=== PATIENT | female | born 1995 | race Caucasian/White ===

== ENCOUNTER 2020-08-28 21:36 | Inpatient (IN) | payer SELFPAY ==
[~2020-08-28] VITALS: Ht 172.7 cm; Wt 101.8 kg
--- NOTE | 2020-08-28 21:45 | NUR ---
Ambulatory to unit for labor assessment, accompanied by spouse. Pt reports mild cramping sinse office exam, stronger contractions this evening. Oriented to room, monitor, plan of care. KHADAR hoffman no change from office exam. Pt reports fast labors and deliveries. Will continue to monitor and reasses. Covid screening negative,pt declines Covid Swab, no PUI.
[2020-08-28 21:55] VITALS: BP 119/71; PULSE 86; TEMP 99
[2020-08-28 22:35] VITALS: BP 124/90; PULSE 99
[2020-08-28 22:55] VITALS: PULSE 79
--- NOTE | 2020-08-28 22:55 | NUR ---
IV started @ bolus rate. Moises PLANT WIRE CHIEF notified of pt request for epidural.
--- NOTE | 2020-08-28 23:15 | NUR ---
Moises FIRMWARE ENGINEER into room for epidural placement. Pt to edge of bed, EFM tracing maternal HR. See anesthesia record.
[2020-08-28 23:35] VITALS: BP 126/60; PULSE 84
[2020-08-28 23:45] VITALS: BP 123/59; PULSE 89
[2020-08-28 23:53] LABS: BASO # 0.1 (0.0-0.2); BASO % 0.3 % (0.0-2.0); EOS # 0.1 (0.0-0.7); EOS % 0.5 % (0-4.0); GRAN # 15.5 (1.4-6.5); GRAN % 74.8 % (42.2-75.2); HEMATOCRIT 39.2 % (37.0-47.0); HEMOGLOBIN 12.8 g/dl (12.5-16.0); LYMPH # 3.4 (1.2-3.4); LYMPH % 16.5 % (20.0-51.0); MEAN CELL VOLUME 85 fl (80.0-100.0); MEAN CORPUSCULAR HEMOGLOBIN 28 pg (27.0-31.0); MEAN CORPUSCULAR HGB CONC 33 g/dl (33.0-37.0); MEAN PLATELET VOLUME 12.2 fl (7.4-10.4); MONO # 1.4 (0.1-0.6); MONO % 6.9 % (1.7-9.3); PLATELET COUNT 213 K/mm3 (130-400); REDCELL DISTRIBUTION WIDTH-CV 13.8 % (11.5-14.5)
[2020-08-29] VITALS (17 sets, daily range): BP systolic 102–132; BP diastolic 48–64; PULSE 60–101; TEMP 97.8–98.6
--- NOTE | 2020-08-29 | NUR ---
Pt reports "i'm feeling a little pressure with the contractions, not bad just a little" SVE as noted
--- NOTE | 2020-08-29 00:59 | NUR ---
Dr Rodgers into room, SVE with AROM, clear fluid. Pt set up and prepped for delivery. [address] Rodgers with large amount clear yellow urine return. [address] Rodgers. Pt and spouse quietly loving and pleased with infant and delivery.
--- NOTE | 2020-08-29 01:18 | NUR ---
Placenta delivers spont and intact with 3 cord. 30 units pitocin in 5oocc LR started at bolus rate. Perineal repair in progress.
--- NOTE | 2020-08-29 01:30 | NUR ---
Perineal repair complete, pericare done, ice pack to perineum, bed together.
--- NOTE | 2020-08-29 04:30 | NUR ---
IV to INT. Epidural catheter dc'd. Up to bathroom with steady gait. Voids large amount performs own pericare. Clean gown on. Ambulates to room.
--- NOTE | 2020-08-29 09:33 | NUR ---
Initial visit; Parents thanked Lay Out And Detail Drafter for offering congratulations and God's blessings for the of their daughter. Lay Out And Detail Drafter thanked family for choosing [facility].
[2020-08-30 07:15] VITALS: BP 122/64; PULSE 59; TEMP 97.7
[2020-08-30] MEDS ORDERED: MOTRIN 600600 MG/TAB PO (08:47)
[2020-08-30 13:00] VITALS: BP 108/56; PULSE 65; TEMP 98.1
[2020-08-30 17:55] VITALS: BP 120/66; PULSE 65; TEMP 97.8
[2020-08-30 19:44] VITALS: BP 119/61; PULSE 58; TEMP 97.5
[2020-08-31 08:40] VITALS: BP 121/57; PULSE 78; TEMP 97.6
== END 2020-08-31 10:10 | disposition home or self-care (01) | DRG 807 ==
LOC: LDRO 21:36 → LDR 22:50 → OB 22:50
PROVIDERS: Obstetrics & Gynecology; ADMIT Obstetrics & Gynecology
PROC: 10E0XZZ Delivery of Products of Conception, External Approach (ICD-10-PCS; principal; 2020-08-29)
PROC: 0KQM0ZZ Repair Perineum Muscle, Open Approach (ICD-10-PCS; 2020-08-29)
PROC: 10907ZC Drainage of Amniotic Fluid, Therapeutic from Products of Conception, Via Natural or Artificial Opening (ICD-10-PCS; 2020-08-29)
DX: O99.824 Streptococcus B carrier state complicating childbirth (principal); Z37.0 Single live birth; B95.1 Streptococcus, group B, as the cause of diseases classified elsewhere; Z3A.39 39 weeks gestation of pregnancy; J45.909 Unspecified asthma, uncomplicated; K21.9 Gastro-esophageal reflux disease without esophagitis; O70.1 Second degree perineal laceration during delivery
CPT/HCPCS: J2540; J2590; J2791; J2795; J7120